=== PATIENT | male | born 1975 | race Caucasian/White ===

== ENCOUNTER 2018-08-08 20:02 | Emergency (ER) | payer SELFPAY ==
[2018-08-08 20:02] VITALS: BP 149/94; PULSE 87; RESP 18; TEMP 36.7; O2SAT 98; BMI 22.2
--- NOTE | 2018-08-08 22:00 | RAD_ITS ---
STUDY: X-RAY CHEST REASON FOR EXAM: Male, 42 years old. Cough and wheezing TECHNIQUE: PA and lateral views of the chest. COMPARISON: None. FINDINGS: The lungs are clear and expanded. There is no demonstrated pleural abnormality. Normal size heart. Normal mediastinum and michi. Normal visualized pulmonary arteries. Normal visualized aortic arch and descending thoracic aorta. Normal visualized thoracic spine. Normal visualized ribs, clavicles, and shoulders. There is no demonstrated abnormality of the visualized soft tissue structures of the upper abdomen. RAD/Chest PA and Lateral IMPRESSION: Normal x-ray examination of the chest. Electronically Signed: Bertrand Mooney MD at 22:35 EDT , Service support ,
--- NOTE | 2018-08-09 | ED.VISSUMM ---
- ER Visit Summary Date of Service: 08/09/18 Chief Complaint: Productive cough green sputum, shortness of breath, wheezing and illness History of Present Illness: The patient is a 42 M who is a smoker of 2 packs per day now smoking one half pack per day presents with productive cough of green colored sputum for the past week. He does complain of mild nasal congestion. He denies postnasal drainage or sore throat. He denies fever, chills or night sweats. He denies weight gain or weight loss. He has never used an inhaler. He denies history of asthma or COPD. He states he had pneumonia one year ago. He denies any GI symptoms. He denies myalgias arthralgias. Please read written note for complete detail. Physical Examination: Vital signs noted and blood pressure elevated 149/94. HEENT exam is remarkable for mild rhinorrhea. Lungs reveal wheezing throughout with increased x-ray phase and decreased air movement. There is no egophony or increased vocal fremitus. Heart is regular without murmur, gallop or rub. Abdomen soft nontender. There is no asymmetry, swelling, discoloration, leg vein distention, palpable cords or tenderness along the distribution of the deep venous system. Test Results: Two-view chest x-ray reveals no acute process. Emergency Department Course and Treatment: Since he has history of pneumonia with abnormal oscillatory findings productive cough of green sputum for 1 week will obtain chest x-ray to evaluate for pneumonia. Since he has never used an inhaler respiratory therapy instructed him how to use inhaler and administered 6 puffs. Treatment Plan: Dispense albuterol MDI with appropriate instructions and prescription for antibiotic. Disposition: Discharged to home Impression: 1. Purulent bronchitis 2. Bronchospasm 3. Tobacco use/abuse This note was generated with [employer] dictation software. It may contain incorrect words, spelling, and punctuation that were not noted in review of the chart prior to signing ED Disposition - Plan for ED Patient: Disposition: Home or Assisted Living Chief Complaint: Cold Sx Instructions: ED Upper Resp Infec Abx Tx Prescriptions: Azithromycin [Zithromax Z-Paul] 250 mg PO UD #1 box Referrals: Care Physician,No Primary [Primary Care Provider] - Hetal Brush [NON-STAFF] - 1 Week if not improving Additional Instructions: It is in your best interest to stop smoking. Take antibiotics until gone. 2 puffs of inhaler every 2-4 hours while awake for the next 3 days then every 4-6 hours as needed for shortness of breath or wheezing
[2018-08-09 00:08] VITALS: BP 138/69; PULSE 69; RESP 20; O2SAT 95
== END 2018-08-09 00:10 | disposition home or self-care (01) ==
PROVIDERS: Emergency Provider Emergency Medicine
DX: J20.9 Acute bronchitis, unspecified (principal); F17.200 Nicotine dependence, unspecified, uncomplicated; Z87.01 Personal history of pneumonia (recurrent)
CPT/HCPCS: 71046; 94640; 94664; 99282

== ENCOUNTER 2020-06-30 01:09 | Emergency (ER) | payer MEDICAID, SELFPAY ==
[2020-06-30 01:09] VITALS: BP 183/109; PULSE 96; RESP 16; TEMP 36.6; O2SAT 96; BMI 25.7
[2020-06-30 01:12] VITALS: BP 169/97
--- NOTE | 2020-06-30 01:33 | RAD_ITS ---
STUDY: X-RAY CHEST REASON FOR EXAM: Male, 44 years old. Flu sx x1 week. TECHNIQUE: Single AP portable view x 2 of the chest. COMPARISON: 08/08/2018 chest x-ray FINDINGS: The lung markings are stable when compared to prior study with mild interstitial prominence of the right infrahilar region There is no demonstrated pleural abnormality. Normal size heart. Normal mediastinum and michi. Normal visualized pulmonary arteries. Normal visualized aortic arch and descending thoracic aorta. Normal visualized thoracic spine. Normal visualized ribs, clavicles, and shoulders. There is no demonstrated abnormality of the visualized soft tissue structures of the upper abdomen. RAD/Chest 1 View (Portable) IMPRESSION: Stable chest no visualized acute focal infiltrate. Electronically Signed: Yumi Lou MD at 2:24 EDT Tel , Service support ,
--- NOTE | 2020-06-30 02:31 | ED.VIS.GEN ---
History of Present Illness Chief Complaint: Cold Sx Informant: Patient Narrative: Patient stated the last 7 days he has had upper respiratory infection symptoms including runny nose nonproductive cough with occasional clear sputum. He does smoke cigarettes. Wanted to make sure he does not have COVID or pneumonia. He has had remote pneumonia in the past. He has had some mild myalgias per patient. No fevers. Past Medical History - Allergies and Home Meds Allergies/Adverse Reactions: Allergies No Known Allergies Allergy (Verified 06/30/20 01:14) Primary Care Physician: Care Physician,No Primary [Primary Care Provider] - Prior records reviewed: Yes Past Medical History: - - Pneumonia Surgical History: - - Reviewed Smoking Status: Current every day smoker Alcohol: None Drugs: None Review of Systems General: Denies: Chills, Fever, Sweats Eyes: Denies: Visual changes - bilaterally, Diplopia ENT: Denies: Rhinorrhea, Sore throat Cardiovascular: Denies: Chest pain, Palpitations Respiratory: Reports: Cough. Denies: Dyspnea, Dyspnea on exertion Gastrointestinal: Denies: Abdominal pain, Nausea, Vomiting, Diarrhea, Melena, Hematochezia Genitourinary: Denies: Dysuria, Hematuria, Frequency Musculoskeletal: Reports: Myalgias. Denies: Back pain, Extremity Pain Skin: Denies: Rash, Wounds Neurological: Denies: Headache, Weakness, Numbness Physical Exam Vital Signs/Narrative: Vital Signs Temp Pulse Resp BP Pulse Ox 06/30/20 01:12 169/97 H 06/30/20 01:09 97.9 F 96 16 183/109 H 96 General: Well nourished, Well developed, No Acute Distress Head: Normocephalic, Atraumatic Eyes: Perrl, EOMI ENT: Moist mucous membranes, No rhinorrhea Neck: Supple, Nontender Cardiovascular: Regular rate, Regular rhythm, No murmurs Respiratory: No distress, CTA bilaterally, Chest nontender Abdomen: Soft, Nontender, Nondistended, Normal bowel sounds Back: Nontender, Normal Inspection Extremities: Nontender, No edema Skin: Normal color, No rash Neurological: Alert, Oriented x3, Cranial nerves II-XII grossly intact, Normal Strength, Normal Sensation Psychological: Normal affect, Normal Mood Diagnostic/Tx/Re-eval - Medical Decision Making Chest x-ray normal. Patient will have an outpatient coronavirus test will follow-up as an outpatient. This is likely upper respiratory infection versus bronchitis ED Disposition - Plan for ED Patient: Disposition: Home or Assisted Living Diagnosis: Upper respiratory infection Instructions: ED URI Viral Referrals: Care Physician,No Primary [Primary Care Provider] -
[2020-06-30 02:36] VITALS: BP 139/97; PULSE 785; RESP 18; O2SAT 95
== END 2020-06-30 02:51 | disposition home or self-care (01) ==
PROVIDERS: Emergency Provider Emergency Medicine
DX: J06.9 Acute upper respiratory infection, unspecified (principal); F17.200 Nicotine dependence, unspecified, uncomplicated
CPT/HCPCS: 71045; 87635; 94799; 99282; U0003

== ENCOUNTER 2022-06-15 21:10 | Emergency (ER) | payer BC, MEDICAID, SELFPAY ==
[2022-06-15 21:11] VITALS: BP 159/112; PULSE 87; RESP 16; TEMP 36.4; O2SAT 98; BMI 25.0
--- NOTE | 2022-06-15 21:25 | RAD_ITS ---
STUDY: X-RAY CHEST REASON FOR EXAM: Male, 46 years old. SOB TECHNIQUE: Single PA view of the chest. COMPARISON: None. FINDINGS: The lungs are clear and expanded. There is no demonstrated pleural abnormality. Normal size heart. Normal mediastinum and michi. Normal visualized pulmonary arteries. Normal visualized aortic arch and descending thoracic aorta. Normal visualized thoracic spine. Normal visualized ribs, clavicles, and shoulders. There is no demonstrated abnormality of the visualized soft tissue structures of the upper abdomen. RAD/Chest 1 View (Portable) IMPRESSION: No evidence of acute cardiopulmonary process. Electronically Signed: Rodrigo Shi DO at 22:06 EDT ,
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
== END 2022-06-15 22:56 | disposition home or self-care (01) ==
PROVIDERS: Emergency Provider Emergency Medicine; Visit Provider Emergency Medicine
DX: B34.9 Viral infection, unspecified (principal); F17.210 Nicotine dependence, cigarettes, uncomplicated
CPT/HCPCS: 71045; 87811; 99282

== ENCOUNTER 2022-09-09 21:17 | Emergency (ER) | payer BC, MEDICAID, SELFPAY ==
[2022-09-09 21:17] VITALS: BP 138/86; PULSE 97; RESP 16; RESP 18; TEMP 36.8; O2SAT 97; BMI 24.7
[2022-09-09] MEDS: Diphth,Pertuss(Acell),Tet Vac 0.5 ML Vial IM (22:24)
--- NOTE | 2022-09-09 22:26 | RAD_ITS ---
STUDY: X-RAY - RIGHT ELBOW REASON FOR EXAM: Male, 46 years old. injury TECHNIQUE: 4 view(s) of the elbow. COMPARISON: None. FINDINGS: Normal visualized humerus, radius and ulna. Normal radiocapitellar and ulnotrochlear articulations. The soft tissue structures are unremarkable. RAD/Elbow min 3 Views IMPRESSION: Normal x-ray examination of the elbow. Electronically Signed: Adeel Lovelace MD at 22:55 EDT ,
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
[2022-09-10] VITALS: RESP 16
== END 2022-09-10 00:04 | disposition home or self-care (01) ==
PROVIDERS: Emergency Provider Emergency Medicine; Visit Provider Emergency Medicine
DX: S50.01XA Contusion of right elbow, initial encounter (principal); S50.311A Abrasion of right elbow, initial encounter; F17.210 Nicotine dependence, cigarettes, uncomplicated; Z23 Encounter for immunization; Y04.8XXA Assault by other bodily force, initial encounter
CPT/HCPCS: 73080; 90471; 90715; 99282

== ENCOUNTER 2023-03-17 01:09 | Emergency (ER) | payer MEDICAID, SELFPAY ==
[2023-03-17 01:09] VITALS: BP 169/88
[2023-03-17 01:10] VITALS: PULSE 67; RESP 16; TEMP 37.1; O2SAT 96; BMI 25.2
[2023-03-17] MEDS: Benzonatate 100 MG Capsule 200 MG PO (02:05)
[2023-03-17] MEDS: Dicyclomine 10 MG Capsule 20 MG PO (02:06)
[2023-03-17] MEDS: predniSONE 20 MG Tablet 40 MG PO (02:06)
--- NOTE | 2023-03-17 02:07 | EDS_ITS ---
HPI History of Present Illness Chief Complaint: General Illness Narrative Narrative: Patient is a 47-year-old male with past medical history of smoking who presents ER with 1 to 2 days of congestion cough and upset stomach. He states multiple at work have been sick with similar symptoms and his significant other has also had symptoms for the past 3 to 4 days. He states that secondary to the congestion cough and upset stomach he is having difficulty doing his job as he has difficulty sleeping and he is fatigued and is concerned that he may need medication to help with symptoms and therefore comes in for evaluation. [facility] Medical History (Updated 03/17/23 @ 05:[address] Arya Washington, DO) Acute bronchitis, unspecified Contact with and (suspected) exposure to other viral communicable diseases URI (upper respiratory infection) Home Medications azelastine 137 mcg (0.1 %) nasal spray aerosol 2 spray intranasal BID #30 mL 03/17/23 [Rx Last Taken Unknown] dicyclomine 20 mg tablet 20 mg PO 4X/DAY PRN PRN Abdominal pain/spasm #28 tabs 03/17/23 [Rx Last Taken Unknown] hydrocodone-homatropine 5 mg-1.5 mg/5 mL (5 mL) oral syrup (Hycodan) 5 ml PO 4X/DAY PRN PRN cough 7 days #140 mL 03/17/23 [Rx Last Taken Unknown] prednisone 20 mg tablet 40 mg PO DAILY 5 days #10 tabs 03/17/23 [Rx Last Taken Unknown] Allergy/AdvReac Type Severity Reaction Status Date / Time No Known Allergies Allergy Verified 03/17/23 01:13 Social History Smoking Status: Current every day smoker tobacco type: cigarettes ROS ROS ED Constitutional Constitutional ED: Denies chills or fever(s) ENT ENT ED: Reports rhinorrhea and sore throat Cardiovascular Cardiovascular: Denies chest pain Respiratory/Chest Respiratory/Chest: Reports cough and dyspnea Gastrointestinal Gastrointestinal: Reports abdominal pain, diarrhea and nausea; Denies vomiting Genitourinary Genitourinary ED: Denies dysuria Musculoskeletal Musculoskeletal: Reports myalgias Integumentary Denies rash Neurologic Neurologic: Denies headache(s) Hematologic/Lymphatic Hematologic/Lymphatic: Denies easy bleeding or easy bruising EXAM Physical Exam Const Vital Signs: 03/17/23 01:10 03/17/23 01:09 03/17/23 01:09 Temperature 98.7 F Temperature Source Temporal Pulse Rate 67 Respiratory Rate 16 Respiratory Effort Normal Non-Labored Respiratory Pattern Normal Blood Pressure 169/88 H Blood Pressure Mean 115 Pulse Ox 96 Oxygen Delivery Method Room Air Positive well nourished and well developed General Appearance ED: well developed HEENT HEENT Narrative: Nasal mucosa is hyperemic and boggy with enlarged inferior nasal turbinate There is cobblestoning the posterior pharynx consistent with sinus drainage but no airway edema or compromise Bilateral TMs are retracted but show no secondary changes to suggest infection Eyes PERRL and EOMs intact bilaterally General Eye ED: Negative for scleral icterus Neck supple and no JVD Chest Wall palpation of chest normal Resp normal respiratory effort Resp Narrative: Patient has faint expiratory wheeze in the bilateral bases consistent with h istory of smoking but otherwise no nasal flaring retractions tachypnea or accessory muscle use Cardio regular rate and regular rhythm GI non-distended and no masses GI Narrative: Abdomen is soft and nondistended with hyperactive bowel sounds. There is mild diffuse pain with palpation without voluntary guarding or rigidity Auscultation: hyperactive bowel sounds Palpation: soft Extremity normal to inspection Neuro oriented x3 and CN's II-XII intact bilaterally Sensorium / Orientation: alert Psych mental status grossly normal Skin no rashes or lesions noted General Skin Exam: Negative for jaundice MDM MDM MDM Narrative Medical decision making narrative: Patient presented to the ER hypertensive otherwise afebrile and in no acute respiratory distress. Differential diagnosis includes COVID versus influenza versus rhinovirus versus parent Valenza virus versus pneumonia versus colitis or enteritis. I discussed with patient possible work-up but he has known contacts at work as well as home who have similar symptoms. His significant other received a chest x-ray today which revealed no pneumonia and his lungs sound better than hers and he is afebrile concern for pneumonia is low. Therefore do not feel there is need for repeat imaging studies. Patient is not hypoxic or requiring supplemental oxygen and therefore he will be given symptomatic medications and discharged home to care for his upper respiratory infection History & Record Review Discussion w/independent historian: Patient Discharge Plan Triage Chief Complaint: General Illness ED Provider: Arya Washington Dx/Rx/DC Orders Clinical Impression: URI (upper respiratory infection), Smoker, Diarrhea Instructions: ED URI, Viral, No Abx (Adult) Prescriptions: New prednisone 20 mg tablet 40 mg PO DAILY 5 Days Qty: 10 0RF azelastine 137 mcg (0.1 %) aerosol,spray 2 spray intranasal BID Qty: 30 0RF Rx Instructions: administer into each nostril dicyclomine 20 mg tablet 20 mg PO 4X/DAY PRN PRN (Reason: Abdominal pain/spasm) Qty: 28 0RF hydrocodone-homatropine [Hycodan] 5-1.5 mg/5 mL (5 mL) syrup 5 ml PO 4X/DAY PRN PRN (Reason: cough) 7 Days Qty: 140 0RF Stand Alone Forms: ED Work / School Excuse Primary Care Provider: Care Physician,No Primary Referrals: Care Physician,No Primary [Primary Care Provider] - Disposition Disposition: Home, Self Care Discharge Date/Time: 03/17/23 02:24
== END 2023-03-17 02:24 | disposition home or self-care (01) ==
PROVIDERS: Emergency Provider Emergency Medicine; Visit Provider Emergency Medicine
DX: J06.9 Acute upper respiratory infection, unspecified (principal); F17.210 Nicotine dependence, cigarettes, uncomplicated; R19.7 Diarrhea, unspecified
CPT/HCPCS: 99283

== ENCOUNTER 2023-07-21 03:01 | Emergency (ER) | payer SELFPAY ==
[2023-07-21 03:02] VITALS: BP 176/99; PULSE 81; RESP 18; TEMP 35.9; O2SAT 97; BMI 23.9
--- NOTE | 2023-07-21 03:11 | EKG12_ITS ---
Test Reason : CP Blood Pressure : / mmHG Vent. Rate : 070 BPM Atrial Rate : 070 BPM P-R Int : 158 ms QRS Dur : 100 ms QT Int : 382 ms P-R-T Axes : 060 055 058 degrees QTc Int : 412 ms Normal sinus rhythm Normal ECG Confirmed by DENNY RAMIREZ MD ([id number]), film editor RM RUEDA ([id number]) on 07/21/2023 12:22:07 PM Referred By: BB Confirmed By:DENNY RAMIREZ MD
--- NOTE | 2023-07-21 03:12 | ED.VIS.CHEST ---
HPI History of Present Illness Chief Complaint: Chest Pain Informant: patient Onset/Context/Timing Timing: Intermittent and Lasts (brief) Quality: Positive for Sharp Location: Left Chest Associated Symptoms: Negative for Nausea, Vomiting, Diaphoresis, Dyspnea, Cough, Lightheadedness or Palpitations Narrative Narrative: Patient presents at 3 AM for intermittent left-sided chest pain that feels like poking/stabbing, intermittent episodes that are brief in duration, have been occurring for the last week or 2, were very rare/occasional when they began but now have been occurring much more frequently. He was while at work tonight when it became more frequent. He states it is really worrying him, he had a family member who had a major heart attack and he is concerned and wants to make sure he is not going to. He states he was doing a task at work tonight that he typically does 3000 times per shift, and he was zoning out in the middle of it, he is not sure if it was his worry/anxiety or something else. He denies any associated symptoms along with the episodes of discomfort. Patient states he is healthy and has no medical problems, and takes no prescriptions. However he does not have a PCP and does not see a doctor routinely. PE Risk Factors: Negative for Recent Travel/Surgery, Recent Immobilization, Prior DVT or PE, Cancer or OCP + Smoking + >/=35 PFSH PFSH Medical History Acute bronchitis, unspecified Contact with and (suspected) exposure to other viral communicable diseases URI (upper respiratory infection) Home Medications NK 07/21/23 [History Last Taken Unknown] Allergy/AdvReac Type Severity Reaction Status Date / Time No Known Allergies Allergy Verified 07/21/23 03:05 Social History Smoking Status: Current every day smoker tobacco type: cigarettes ROS ROS ED Constitutional Constitutional ED: Denies chills or fever(s) Eyes Eyes: Denies change in vision or diplopia ENT ENT ED: Denies rhinorrhea or sore throat Cardiovascular Cardiovascular: Reports as per HPI and chest pain; Denies palpitations Respiratory/Chest Respiratory/Chest: Denies cough or dyspnea Gastrointestinal Gastrointestinal: Denies abdominal pain, diarrhea, nausea or vomiting Genitourinary Genitourinary ED: Denies dysuria or hematuria Musculoskeletal Musculoskeletal: Denies back pain or neck pain Integumentary Denies abscess or rash Neurologic Neurologic: Denies headache(s), paresthesias or weakness Psychiatric Psychiatric: Reports anxiety; Denies suicidal thoughts EXAM Physical Exam Const Vital Signs: 07/21/23 03:02 07/21/23 03:04 07/21/23 03:28 Temperature 96.6 F L Temperature Source Temporal Pulse Rate 81 Respiratory Rate 18 Respiratory Effort Normal Blood Pressure 176/99 H Blood Pressure Mean 124 Pulse Ox 97 Oxygen Delivery Method Room Air Room Air 07/21/23 03:28 Temperature Temperature Source Pulse Rate 70 Respiratory Rate 15 Respiratory Effort Blood Pressure Blood Pressure Mean Pulse Ox Oxygen Delivery Method Positive well nourished and well developed General Appearance ED: well developed and NAD HEENT Reports moist mucous membranes normocephalic and atraumatic Eyes PERRL and EOMs intact bilaterally Neck full ROM and supple Chest Wall inspection of chest normal and palpation of chest normal Resp normal respiratory effort and clear to auscultation bilaterally Cardio regular rate, regular rhythm and no murmurs Rate: Negative for tachycardic GI non-tender and non-distended Auscultation: normoactive bowel sounds Palpation: soft Back/Spine no CVA tenderness General Back: other FROM Extremity normal to inspection General Extremety ED: Negative for edema, pulses abnormal or tenderness General Extremity: Negative for edema or pulses abnormal Neuro oriented x3, CN's II-XII intact bilaterally and no sensory deficits noted Sensorium / Orientation: awake and alert Motor Exam: strength 5/5 throughout Psych Mood & Affect: anxious Skin no rashes or lesions noted and no wounds Heart Score History: Slightly/Non-Suspicious ECG: Normal Age: >45 - <65 years Risk Factors: 1 or 2 Risk Factors Score: 2 MDM MDM MDM Narrative Medical decision making narrative: EKG obtained is normal, heart enzymes are negative and since he has been having episodes for fairly extended period of time I do not think we need to do a 2-hour delta in order to rule out acute coronary syndrome at this time. Furthermore 2 view chest x-ray on my interpretation is normal, radiology was in agreement, and his other labs are unremarkable, he has a mild leukocytosis which is nonspecific. While working him up he was given IV Toradol 15 mg and an oral dicyclomine 20 mg. On further evaluation, he states he has had no further episodes of discomfort and he seems to be much better. Not obviously acid related but still could be esophageal spasm, or could be musculoskeletal. Close outpatient follow-up advised, his blood pressure was high 170s and I recommend getting it rechecked when he is feeling well, we discussed ways to do that he was referred to the next doctor on the unassigned list. Lab Data Attestation: I reviewed the patient's lab results. Labs: Laboratory Results - last 24 hr 07/21/23 03:14 WBC 12.7 H RBC 5.02 Hgb 14.8 Hct 42.7 MCV 85.1 MCH 29.5 MCHC 34.7 RDW Std Deviation 37.2 RDW Coeff of Carloz 12.3 Plt Count 239 MPV 10.6 Immature Gran % (Auto) 0.400 Neut % (Auto) 59.0 Lymph % (Auto) 29.0 [place] % (Auto) 6.4 Eos % (Auto) 4.7 Baso % (Auto) 0.5 Absolute Neuts (auto) 7.5 Absolute Lymphs (auto) 3.69 Nucleated RBC % 0 Sodium 140 Potassium 3.8 Chloride 110 H Carbon Dioxide 24.0 Anion Gap 6 BUN 17 Creatinine 1.28 Estim Creat Clear Calc 83.84 Est GFR (MDRD) Af Amer 78 Est GFR (MDRD) Non-Af 64 BUN/Creatinine Ratio 13.3 Glucose 140 H Calcium 8.8 Troponin I High Sens < 3 L Radiography Diagnostic Testing: Clinical Impression(s) from Imaging Studies Chest X-Ray 07/21/23 03:20 IMPRESSION: No evidence of cardiopulmonary disease. Electronically Signed: Reynaldo Hood DO at 3:40 EDT , Rhythm Strip Rhythm Strip: Sinus Rhythm Rate: 80 Ectopy: None EKG Initial EKG: Attestation: I personally reviewed and interpreted this EKG as follows: Interpretation: Sinus Rhythm and No Acute Injury Pattern Comments: nml EKG Discharge Plan Triage Chief Complaint: Chest Pain ED Provider: Bertrand Cunha Dx/Rx/DC Orders Clinical Impression: Left-sided chest pain, Episode of hypertension Instructions: ED Chest Pain, Noncardiac, ED Hypertension, To Be Confirmed Prescriptions: No Action NK Primary Care Provider: Care Physician,No Primary Referrals: Mahsa Gross DO [Med Staff - Active Staff] - (call for appt) Disposition Disposition: Home, Self Care
--- NOTE | 2023-07-21 03:20 | RAD_ITS ---
INDICATION: chest pain EXAMINATION/TECHNIQUE: X-RAY - XR Chest 2 Views COMPARISON: 06/15/2022. FINDINGS: LINES/DEVICES: None. LUNGS: No consolidation or evidence of an effusion. No evidence of edema or a pneumothorax. MEDIASTINUM AND CARDIOVASCULAR STRUCTURES: Cardiac silhouette is normal in size and contour. Mediastinum is unremarkable. BONES AND SOFT TISSUES: No acute abnormality. RAD/Chest PA and Lateral IMPRESSION: No evidence of cardiopulmonary disease. Electronically Signed: Reynaldo Hood DO at 3:40 EDT ,
[2023-07-21 03:24] LABS: Absolute Lymphocyte Count 3.69 X10^3/uL (0.83-4.51); Absolute Neutrophil Count 7.5 X10^3/uL (2.0-7.7); Basophil# 0.06 X10^3/uL; Basophil% 0.5 % (0-1); Eosinophils% 4.7 % (0-5); Hematocrit 42.7 % (40-54); Hemoglobin 14.8 g/dL (13.0-16.5); Lymphocyte # 3.69 X10^3/ul (0.83-4.51); Mean Corp Hgb Conc 34.7 g/dL (32-36); Mean Corpuscular Hgb 29.5 pg (27.0-32.0); Mean Corpuscular Volume 85.1 fL (80-94); Mean Platelet Vol. 10.6 fl (6.2-12.0); Monocyte# 0.81 X10^3/uL; Monocyte% 6.4 % (0-10); NRBC Flagged by Analyzer 0 % (0-5); Neutrophil # 7.52 X10^3/uL (2.7-7.7); Platelet Count 239 K/mm3 (150-450); RBC Distribution Width CV 12.3 % (11.6-14.6); RBC Distribution Width SD 37.2 fl (35.1-43.9); Red Blood Count 5.02 M/mm3 (4.6-6.2); White Blood Count 12.7 K/mm3 (4.4-11.0)
[2023-07-21] MEDS: Dicyclomine 10 MG Capsule 20 MG PO (03:25)
[2023-07-21] MEDS: Ketorolac 15 MG/ML Vial IV (03:25)
[2023-07-21 03:28] VITALS: PULSE 70; RESP 15
[2023-07-21 03:41] LABS: Anion Gap 6 (5-15); BUN 17 mg/dL (7-18); BUN/Creat Ratio 13.3 RATIO (10-20); Calcium,Total 8.8 mg/dL (8.5-10.1); Chloride 110 mmol/L (98-107); Creatinine, Serum 1.28 mg/dL (0.70-1.30); EST Glomerular Filtration Rate 64 mL/min (>60); Est Glom Filt Rate - Afr Amer 78 mL/min (>60); Estimated Creatinine Clearance 83.84 ml/min; Glucose 140 mg/dL (74-106); Potassium 3.8 mmol/L (3.5-5.1); Sodium Level 140 mmol/L (136-145); Troponin-I HS < 3 pg/mL (3.0-78.0)
[2023-07-21 04:22] VITALS: BP 142/99; PULSE 66; RESP 16; O2SAT 97
== END 2023-07-21 04:23 | disposition home or self-care (01) ==
PROVIDERS: Emergency Provider Emergency Medicine; Visit Provider Emergency Medicine
DX: R07.9 Chest pain, unspecified (principal); I10 Essential (primary) hypertension; F17.210 Nicotine dependence, cigarettes, uncomplicated
CPT/HCPCS: 71046; 80048; 84484; 85025; 93005; 96374; 99284; A4216